=== PATIENT | female | born 2000 | race Caucasian/White ===

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

== ENCOUNTER 2019-10-19 20:36 | Emergency (ER) | payer OTHER ==
[~2019-10-19] VITALS: Ht 167.6 cm; Wt 96.2 kg
[2019-10-19 20:46] VITALS: Ht 167.6 cm; Wt 96.2 kg
[2019-10-19 21:36] LABS: BASOPHIL % 0.8 % (0-2); PLATELET COUNT 352 x10^3mcL (130-400)
[2019-10-19 21:38] LABS: RED CELL DISTRIBUTION WIDTH 17.1 % (11.5-14.5)
[2019-10-19 21:41] LABS: CALCIUM 9.3 mg/dL (8.5-10.1); CARBON DIOXIDE 28.5 mmol/L (21-32); CHLORIDE SERUM 104 mmol/L (98-107); CREATININE SERUM 0.8 mg/dL (0.6-1.0); GFR1 > 60 mL/min; GLUCOSE SERUM 95 mg/dL (74-106); SODIUM SERUM 140 mmol/L (136-145)
[2019-10-19 21:45] LABS: ALBUMIN 3.9 g/dL (3.4-5.0); ALKALINE PHOSPHATASE 59 U/L (46-116); ALT/SGPT 37 U/L (14-59); AST/SGOT 16 U/L (15-37); BILIRUBIN TOTAL 0.2 mg/dL (0.20-1.00); TOTAL PROTEIN, SERUM 7.6 g/dL (6.4-8.2)
[2019-10-19 23:11] LABS: AMPHETAMINE QUAL UR NONE DETECTED (See below)
[2019-10-19 23:38] VITALS: BP 132/82
== END 2019-10-19 23:38 | disposition home or self-care (01) ==
LOC: ED 20:36
PROVIDERS: Emergency Medicine
DX: R55 Syncope and collapse (principal); Z98.890 Other specified postprocedural states
CPT/HCPCS: 36415; 83880; Q0092

== ENCOUNTER 2020-02-09 22:33 | Emergency (ER) | payer OTHER, SELFPAY ==
[~2020-02-09] VITALS: Ht 170.2 cm; Wt 96.6 kg
[2020-02-09 22:52] VITALS: Ht 170.2 cm; Wt 96.6 kg
[2020-02-10 00:33] VITALS: BP 126/61
== END 2020-02-10 00:33 | disposition home or self-care (01) ==
LOC: ED 22:33
DX: R51 Headache (principal); Z20.828 Contact with and (suspected) exposure to other viral communicable diseases; Z98.890 Other specified postprocedural states
CPT/HCPCS: Q0092; U0003-CS